=== PATIENT | male | born 1960 | race African-American/Black ===

== ENCOUNTER 2017-04-13 11:30 | Inpatient (IN) ==
[2017-04-20] MEDS ORDERED: SODIUM CHLORIDE 0.9% 100 ML IV ONE (05:57)
[2017-04-20] MEDS ORDERED: ALVIMOPAN 12 MG CAPSULE ONE (05:57)
[2017-04-20] MEDS ORDERED: SODIUM PHOSPHATE ENEMA 133 ML BOTTLE RECTAL ONE ×2 (05:57→06:30)
[2017-04-20] MEDS ORDERED: cefTRIAXone 1,000 MG VIAL ONE (05:57)
[2017-04-20] MEDS ORDERED: ALVIMOPAN 12 MG CAPSULE PO ONE (06:00)
[2017-04-20] MEDS ORDERED: cefTRIAXone 1,000 MG in SODIUM CHLORIDE 0.9% 100 ML IV ONE (06:00)
[2017-04-20] MEDS ORDERED: LACTATED RINGERS 1,000 ML IV SCH (07:00)
[2017-04-20] MEDS ORDERED: ROCURONIUM 100 MG/10 ML VIAL IV ONE (07:10)
[2017-04-20] MEDS ORDERED: LIDOCAINE 2% 5 ML VIAL ONE (07:10)
[2017-04-20] MEDS ORDERED: ONDANSETRON 4 MG/2 ML VIAL ONE ×2 (07:10→12:22)
[2017-04-20] MEDS ORDERED: PROPOFOL 200 MG/20 ML VIAL IV ONE (07:10)
[2017-04-20 08:49] LABS: Apearance,Urine CLEAR (Clear); Bilirubin,Urine Negative (Negative); Blood, Urine Negative (Negative); Glucose,Urine (UA) Negative (Negative); Ketones,Urine Negative (Negative); Mucus,Urine Occasional /LPF (Occasional); Nitrite,Urine Negative (Negative); Protein,Urine Negative; RBC,Urine <1 /HPF (0-4); Squamous Epithelial Cell,Urine Occasional /HPF (0-10); Urine Color Yellow (Yellow); Urine Specific Gravity 1.017 (1.001-1.035); Urine Urobilinogen < 2.0 EU/DL (0.2-1.0); WBC,Urine 6 /HPF (0-6)
--- NOTE | 2017-04-20 09:37 | Operative Note ---
Date of procedure: 04/20/17 Pre-op diagnosis: Veress needle malfunction Post-op diagnosis: same Procedure: Preoperative diagnosis Prostate cancer Postoperative diagnosis Same with Veress needle malfunction during trocar placement Procedures performed Diagnostic laparoscopy Findings I was called into the operating room by Dr. Kramer to evaluate an area of blood staining that occurred after laparoscopic trochars were placed. A Veress needle was used into the peritoneal cavity but the Veress needle malfunction in the protective inner cannula of the Veress needle did not deploy to cover the blade while it was going through the layers of the abdominal wall. After Dr. Kramer had exchanged for a robotic 8 mm trocar he noticed some blood in the abdomen and some air in the mesentery and asked me to evaluate this. After additional trochars were placed this area was thoroughly inspected. We could see a Veress needle injury site on the leaf of the mesentery but there is no evidence of entrance into the bowel and the bowel appeared fine. This area on the mesentery was in a location where he could have gone through the mesentery and into the sidewall the bowel but there was no succus and on compression of the bowel and interrogation there was no evidence of any problems there. There is no pneumatosis in the wall of the bowel and exploring this mesentery by the bowel would almost certainly result in too much risk to the patient to justify the benefit. I felt at this time that there was no significant risk of bowel injury and decided to leave this alone and will follow the patient postoperatively. Complications None apparent Specimen None Anesthesia GETA Indications Prostate cancer with Veress needle malfunction during trocar placement Description of procedure Patient was already asleep in the operating room at the time of my evaluation. There is some blood that had pooled around the mesentery in the mid abdomen. 3 trochars already been placed. I did a diagnostic laparoscopy with bowel clamps to remove the bowel around without injuring the bowel and there was no evidence of bowel injury in this area. There was some air in the mesentery on one side of the bowel and I saw what I thought was an entry site of the Veress needle. This was high enough on the mesentery that is certainly could have gone through the side of the intestine on the sidewall so we evaluated this area of the small bowel very carefully. There is no hematoma on the bowel at this location and there was no succus or pneumatosis or any evidence of injury to the bowel. This fat on the side of the bowel that was continuous with mesentery would have been nearly impossible to separate from the wall of the bowel without injuring the bowel and because everything else looks so normal I felt like the safest thing to do was to leave this alone and follow the patient postoperatively. There is no significant mesenteric hematoma. This concluded my portion of the case I left the operating room for Dr. Kramer to complete his prostatectomy. Postoperative plan Follow patient clinically Surgeon / Physician: Mateus Chávez Discharge Plan - Discharge Medications No Action raNITIdine HCl [Ranitidine HCl] 150 mg PO BID Cetirizine HCl [Cetirizine Tab] 10 mg PO DAILY Losartan/Hydrochlorothiazide [Losartan-Hctz 50-12.5 mg Tab] 1 each PO DAILY Metformin HCl 500 mg PO BID - Follow Up or Referral - Forms/Instructions
[2017-04-20] MEDS ORDERED: ONDANSETRON 4 MG/2 ML VIAL IV PRN ×2 (11:57→12:35)
[2017-04-20] MEDS ORDERED: diphenhydrAMINE 50 MG/1 ML VIAL IV PRN (11:57)
[2017-04-20] MEDS ORDERED: DEXTROSE 5% NACL 0.45% 1,000 ML IV SCH (12:00)
[2017-04-20] MEDS ORDERED: HYDROmorphone PCA 30 MG/30 ML SYRINGE IV SCH (12:00)
[2017-04-20] MEDS ORDERED: SEVOFLURANE 1 UNIT/15 MINUTE INH ONE (12:02)
[2017-04-20] MEDS ORDERED: ePHEDrine 50 MG/ML AMP ONE (12:03)
[2017-04-20] MEDS ORDERED: fentaNYL 100 MCG/2 ML VIAL ONE (12:03)
[2017-04-20] MEDS ORDERED: MIDAZOLAM 2 MG/2 ML VIAL ONE (12:03)
[2017-04-20] MEDS ORDERED: LACTATED RINGERS 2,000 ML IV ONE (12:03)
[2017-04-20] MEDS ORDERED: HYDROmorphone 2 MG/1 ML VIAL ONE ×2 (12:03→12:22)
--- NOTE | 2017-04-20 12:18 | Operative Note ---
Date of procedure: 04/20/17 Pre-op diagnosis: Carcinoma the prostate Post-op diagnosis: same Procedure: 56-year-old gentleman with carcinoma the prostate, intermediate risk. He is like to undergo prostatectomy. We have discussed a robotic assisted laparoscopic radical prostatectomy. Procedure was discussed at length and in detail. Risks, complications, outcomes, sequelae, prognosis and alternative therapy was discussed. Patient understood this and agreed to proceed. Patient is brought to the operative suite placed table in the supine position on the securing pad. He is then given a general endotracheal anesthetic placed in stirrups and then secured to the table in the usual manner for robotic prostatectomy. He is then prepared and draped in usual sterile manner. 22 Swedish Marquez was inserted in the bladder and the bladder was drained and the Marquez was clamped. Patient is then placed in Trendelenburg position. The legs are brought down. Formal timeout performed. A small incision created above the umbilicus. This is then bluntly dissected down the fascia he has a rather moderate panniculus in the subcutaneous tissues deep. Towel clips were used to pull up the abdominal wall using a Veress needle the Veress needle was used to joseph the fascia. But I did not hear the to click. I did have a saline drop test and with twisting of the needle I was able get insufflation. The insufflation was uniform throughout the abdominal cavity. The Veress needle was then removed and it is clear that the retracting mechanism pulled up into the nasal and did not deploy back out. The trocar was placed in a Cam was inserted. The intra- abdominal contents are noted. In the mesentery of the small bowel there is small amount of blood and one can see that there has been some insufflation here. Another port was placed in laterally to the camera port #1 and then between these up about 3 inches was the mini gel port. A consult to he came and scrubbed and looked at this. He did not see any injury of the bowel but he felt that dissecting the mesentery off the bowel would create too much risk for the patient he felt that at this point we did not have a bowel injury or vascular injury. Remaining trochars are placed #3 arm number form laterally on the right side. These were done under direct vision. I broke scrub and went to the console. [place] bipolar forceps and left and monopolar scissors in the right. Posterior dissection was begun. With elevation of the bladder in the cul-de-sac and anterior incision is created in the vas deferens and seminal vesicles are identified. Vas deferens were clipped and divided seminal vesicles dissected out. The seminal vesicles were surprisingly stuck and adherent with a lot of adhesions. A window in Denonvilliers's was created. Attention was then directed to creating the bladder flap. Incision is created in the anterior abdominal wall lateral to the median umbilical ligaments. Layne gets were then divided and cauterized and the bladder flap was dropped into the pelvis. Prevesical space was developed. Endopelvic fascia was divided on both sides there was a lot of vascularity to this case. A lot of small vessels feeding from the levators laterally and these had to be taken down. This was initially a nerve sparing so I did not want to take down all these vessels. The dorsal vein was identified in the superficial dorsal vein was then divided with the vessel sealer. Puboprostatics were divided and then a #1 Vicryl was used to ligate the dorsal venous complex. Attention was directed bladder neck. The junction was identified and divided with cautery. The bladder was entered with sharp dissection and bladder was then drained. Anterior pedicles were taken down intermittently and clipped and divided. Bladder neck was opened up posterior bladder neck was incised and the Marquez catheter was deflated and pulled back. Fourth arm was used to elevate the posterior prostate and remaining dissection was continued to the seminal vesicles and vas deferens which were pulled up. Posterior lateral pedicles were then taken down somewhat. Again there was a lot of adhesions. He has had a previous biopsy and I suspect it is related to multiple biopsies but could be cancer. I dissected the lateral prostatic fascia on the left side. But it was very close with biopsy having cancer at their office in a specimen for frozen section. This revealed prostate tissue but not cancer and so knowing this I elected not to spare this man's nerves. I just felt that we would have a positive margin if I did this. Remaining posterior lateral pedicles were isolated clipped and divided. The nerves were sacrificed on both sides. Plane between the rectum and the prostate was developed but had a lot of adhesions again I suspect that from previous biopsies. But this was done without any injury. Remaining pedicles were taken down and using cautery from the bipolar. Attention was directed to the apex. Dorsal venous complex was divided dissection was continued sharply down the urethra. In the anterior urethra was incised. Marquez catheter was pulled back the posterior urethra was then divided. Remainder attachments were divided. Specimen was placed in specimen bag which was pulled up in the left upper quadrant. No dissection was done on both sides. Adventitia the external iliac vein was entered the [place] tissue was swept in the obturator fossa. These were teased out using cautery. The obturator nerve was identified and not injured on both sides. These were sent as separate specimens. The anastomosis was then begun. A 2-0 Vicryl was used to approximate the posterior bladder neck to the posterior urethral plate and then using the convenient ema suture this was begun at 6 o'clock position outside in on both sides and running up from the 1:00 5:00 and 7:00 11:00 positions. A new 22 Swedish silicone Marquez was inserted prior to tying the suture. This was filled with 20 cc of saline and irrigated this was a watertight anastomosis. The anastomotic suture was then tied securely. The pneumoperitoneum was dropped to 0 there was no significant bleeding. The robot was then undocked. The patient was laying flat and the assistance port incision after pulling out the mini gel port was extended slightly and the specimen bag containing the prostate and seminal vesicles was removed. This wound was then closed with a running 0 Monocryl. All other wounds are irrigated and drained and hemostasis checked with cautery and all wounds were closed with skin clips on the skin. Sterile dressings were placed on the wounds and the catheter secured the upper thigh. Patient tolerated this procedure well was awakened anesthesia sent to the recovery room in stable condition. All sponge, needle and instrument counts correct 2. Implants: 22 Swedish all silicone Marquez Anesthesia: GETA Surgeon / Physician: Nicholas Kramer Estimated blood loss: other (250 cc) Specimens: other (Prostate with seminal vesicles, bilateral obturator nodes) Condition: stable Disposition: PACU Discharge Plan - Discharge Medications No Action raNITIdine HCl [Ranitidine HCl] 150 mg PO BID Cetirizine HCl [Cetirizine Tab] 10 mg PO DAILY Losartan/Hydrochlorothiazide [Losartan-Hctz 50-12.5 mg Tab] 1 each PO DAILY Metformin HCl 500 mg PO BID - Follow Up or Referral - Forms/Instructions
[2017-04-20] MEDS ORDERED: HYDROmorphone PCA 30 MG/30 ML SYRINGE IV ONE (12:22)
[2017-04-20] MEDS: HYDROmorphone 2 MG/1 ML VIAL IV PRN ×4 (12:22→12:37)
[2017-04-20] MEDS: SODIUM CHLORIDE 0.9% 1,000 ML IV SCH (14:12)
--- NOTE | 2017-04-20 14:36 | Anesthesia Post-Op ---
Anesthesia Post OP - Post Ansesthetic Evaluation Patient seen in post op: Yes Resp: within normal limits CV: within normal limits Mental: within normal limits Temp: within normal limits [id number]: within normal limits Nausea and Vomiting: within normal limits Pain: within normal limits
[2017-04-20] MEDS: SOLIFENACIN 5 MG TABLET PO SCH (14:39)
--- NOTE | 2017-04-20 17:13 | Urology Progress Note ---
Urology - PN: Subj Interval history: Postoperative check. Patient is awake and alert. Expected incisional tenderness. Urine is clearing. Vital signs are stable. Patient is stable. Exam - Constitutional Vitals: Period Temp Pulse Resp BP Sys/Morin Pulse Ox Last 24 Hr 97.5 F-98.4 F 65-89 16-20 117-141/69-94 2-100
[2017-04-20] MEDS: ALVIMOPAN 12 MG CAPSULE PO SCH (21:05)
[2017-04-20] MEDS: FAMOTIDINE 20 MG TABLET PO SCH (21:05)
[2017-04-20] MEDS: metFORMIN 500 MG TABLET PO SCH (21:05)
[2017-04-20] MEDS: LACTULOSE 20 GM/30 ML UDCUP PO SCH (21:05)
[2017-04-21] MEDS: SODIUM CHLORIDE 0.9% 1,000 ML IV SCH (00:14)
[2017-04-21 07:16] LABS: Basophils % 0.1 % (0.0-0.8); Hematocrit 31.6 VOL% (42.0-52.0); Hemoglobin 10.4 GM/DL (14.0-18.0); Immature Granulocytes % 0.3 %; Immature Granulocytes Absolute 0.02 #; Lymphocytes # 1.6 10*3/uL (1.4-4.0); Lymphocytes % 21.7 % (21.2-54.2); Mean Corpuscular HGB Conc 32.9 GM/DL (32-36); Mean Corpuscular Hemoglobin 29 PG (27-34); Mean Corpuscular Volume 88.5 FL (87-102); Mean Platelet Volume 11.7 FL (9.6-12.0); Monocytes # 0.7 10*3/uL (0.11-0.8); Monocytes % 9.3 % (1.7-12.7); Neutrophils # 5.1 10*3/uL (1.4-7.4); Neutrophils % 68.6 % (38.7-73.9); Platelet Count 185 T/CUMM (130-400); Red Blood Count 3.57 MC/CUMM (3.8-5.5); Red Cell Distribution Width 15.7 % (9.3-17.3); White Blood Count 7.4 T/CUMM (4-12)
[2017-04-21 07:40] LABS: Hypochromasia 1+
[2017-04-21 07:41] LABS: Microcytosis 1+; Platelet Estimate Adequate
[2017-04-21 07:59] LABS: Calcium 7.9 MG/DL (8.5-10.1); Osmolality,Calculated 281.3 MOS/KG (273-304); Potassium 3.6 MMOL/L (3.5-5.1)
[2017-04-21] MEDS: CETIRIZINE 10 MG TABLET PO SCH (08:38)
[2017-04-21] MEDS: LOSARTAN/HCTZ 50-12.5 MG TABLET PO SCH (08:38)
[2017-04-21] MEDS: FAMOTIDINE 20 MG TABLET PO SCH ×2 (08:38→20:28)
[2017-04-21] MEDS: SOLIFENACIN 5 MG TABLET PO SCH (08:38)
[2017-04-21] MEDS: ALVIMOPAN 12 MG CAPSULE PO SCH ×2 (08:38→20:28)
[2017-04-21] MEDS: metFORMIN 500 MG TABLET PO SCH ×2 (08:38→20:28)
[2017-04-21] MEDS: LACTULOSE 20 GM/30 ML UDCUP PO SCH ×2 (08:38→20:28)
[2017-04-21] MEDS ORDERED: MEPERIDINE 50 MG/1 ML VIAL IM PRN (08:56)
[2017-04-21] MEDS ORDERED: oxyCODONE/ACETAMINOPHEN 5-325 MG TABLET PO PRN (08:56)
--- NOTE | 2017-04-21 08:59 | Urology Progress Note ---
Urology - PN: Subj Interval history: Postop day 1. Urine is clear. Patient is tolerating his diet abdomen is soft with expected incisional tenderness. His blood work is fine. H&H is 10 and 31. Electrolytes are normal as well as his creatinine. Doing well. Plan progressive care. Exam - Constitutional Vitals: Period Temp Pulse Resp BP Sys/Morin Pulse Ox Last 24 Hr 97.4 F-98.4 F 65-98 16-20 100-139/59-94 2-100 Results - Labs CBC & BMP: 04/21/17 05:35 04/21/17 05:35
[2017-04-21] MEDS: oxyCODONE/ACETAMINOPHEN 5-325 MG TABLET PO PRN (16:46)
[2017-04-21] MEDS ORDERED: ALUMINUM/MAGNES/SIMETH MAX STR 30 ML UDCUP PO PRN (23:33)
[2017-04-22] MEDS: oxyCODONE/ACETAMINOPHEN 5-325 MG TABLET PO PRN (04:12)
[2017-04-22] MEDS: SOLIFENACIN 5 MG TABLET PO SCH (09:27)
[2017-04-22] MEDS: metFORMIN 500 MG TABLET PO SCH (09:27)
[2017-04-22] MEDS: LOSARTAN/HCTZ 50-12.5 MG TABLET PO SCH (09:27)
[2017-04-22] MEDS: FAMOTIDINE 20 MG TABLET PO SCH (09:27)
[2017-04-22] MEDS: CETIRIZINE 10 MG TABLET PO SCH (09:28)
[2017-04-22] MEDS: LACTULOSE 20 GM/30 ML UDCUP PO SCH (11:35)
[2017-04-22 11:46] VITALS: BP 124/70
--- NOTE | 2017-04-22 12:00 | Discharge Summary ---
Hospital Course - Hospital Course Hospital Course: 56-year-old gentleman who has intermediate risk carcinoma prostate underwent robotic prostatectomy. Postoperatively is done well. Blood work looks good postop his creatinine was normal. His urine is cleared up. He is tolerating regular diet. His wounds are healing well. We will discharge him to follow-up in the office in about 10 days to remove the catheter in about 2 weeks to see me. Activity and postoperative care has been discussed. We will write him a prescription for Percocet and some Ditropan XL for his bladder. Pathology report is pending. - Time spent with patient Time with patient DS: Greater than 30 minutes Diagnosis - Discharge Diagnosis (1) Prostate cancer Status: Acute Discharge Plan - Discharge Data Disposition: Disch To Home/Self Care Condition at Discharge: Stable Discharge Diet: regular diet Activity: no lifting, other (No driving, riding heavy lifting etc. Walking on flat ground is encouraged) Hygiene: no restrictions Weight Bearing at Discharge: full weight bearing Driving: not until seen by doctor Contact your physician if you experience:: fever over 101, Nausea/Vomiting, Bleeding, pain uncontrolled by pain medications - Discharge Medications No Action raNITIdine HCl [Ranitidine HCl] 150 mg PO BID Cetirizine HCl [Cetirizine Tab] 10 mg PO DAILY Losartan/Hydrochlorothiazide [Losartan-Hctz 50-12.5 mg Tab] 1 each PO DAILY Metformin HCl 500 mg PO BID - Follow Up or Referral - Forms/Instructions Exam - Constitutional Vitals: Period Temp Pulse Resp BP Sys/Morin Pulse Ox Last 24 Hr 97.4 F-98.6 F 72-109 18-20 104-140/59-73 92-99 Discharge Results Labs on day of discharge: Labs from last 24 hours 04/22/17 04/21/17 04/21/17 10:32 19:32 15:30 POC Glucose 169 H 209 H 141 H 04/21/17 11:07 POC Glucose 198 H DS: Provider Date of admission: 04/20/17 05:05 Primary care physician: . No PCP Attending physician on admission: Nicholas Kramer MD Discharging clinician: Nicholas Kramer MD
[2017-04-22] MEDS: ALVIMOPAN 12 MG CAPSULE PO SCH (12:53)
--- NOTE | 2017-04-22 19:19 | Pathology Report from [facility] ---
[facility] [place] ACCESSION # : [id number] PATIENT NAME : Chanda Contreras ORDERING DR : JOSE RAFAEL VEGA MD CLINICAL HX: Prostate cancer; PSA = 5.1. POST-OP DX: Same SPECIMEN INFO: #1 ? prostate tissue #2 Right obturator node #3 Left obturator node #4 Prostate GROSS DESCRIPTION: #1 CHANDA CONTRERAS received fresh is a 0.5 x 0.3 cm pink- sepulveda soft tissue fragments submitted in cassette #1 for frozen.#2 CHANDA CONTRERAS received fresh is 3 fragments of fatty tissue collectively 6.0 x 1.8 cm Submitted entirely in 2A& 2B.#3 CHANDA CONTRERAS received fresh ist a 2.7 x 1.8 x cm fragment of fatty tissue. Sectioned and submitted entirely in 3A & 3B.#4 CHANDA CONTRERAS received in formalin is a 4.2 x 4.5 x 3.2 cm, 66 gram prostate and attached seminal vesicles and vas deferens. The serosa is red-sepulveda and shaggy. The right side of the prostate is inked black, the left blue. Sections: 4A apical margin, 4B base margin, 4C seminal vesicles and vas deferens margins, 4D thru 4I right prostate apex to base, 4J thru 4N left prostate apex to base. DIAGNOSIS FOR CHANDA CONTRERAS: #1-#4 PROSTATE, RADICAL PROSTATECTOMY (4.5 x 4.2 x 3.2 cm, 66 gm): TYPE: Ductal adenocarcinoma. SITE: Both lobes. GRADE: Primary Pattern Grade 3; Secondary Pattern Grade 4; Total Iris Score = 7. IRIS GRADE GROUP: 2 (3 + 4 = 7). PERCENTAGE OF PATTERN 4 in IRIS SCORE ( 3 + 4 = 7) CANCER = 20%. TUMOR QUANTITATION: Percentage of prostate involved by tumor = 10%; Dominant nodule = 13 mm. MARGINS: Margins uninvolved by invasive carcinoma. EXTRAPROSTATIC EXTENSION: Not Identified. SEMINAL VESICLE INVASION: Not identified. URINARY BLADDER NECK INVASION: Not identified. LYMPH -VASCULAR INVASION: Not identified. PERINEURAL INVASION: Not identified. LYMPH NODES: Two obturator lymph nodes (#2 Rt & #3 Lt) negative for tumor (0/2) . AJCC PATHOLOGIC STAGE I ([id number]) COLLECTED DATE: 04/20/2017 [facility] REPORT DATE: 04/22/2017 ELECTRONICALLY SIGNED BY: Dionte Valenzuela M.D. 04/22/2017 - 13:42:46 MTDD
== END 2017-04-22 17:54 | disposition home or self-care (01) | DRG 707 ==
LOC: N.OR 04-20 05:05 → N.SDSINP 04-20 05:05 → EDSTATUS 04-20 07:30 → N.5E 04-20 11:12
PROVIDERS: ADMIT Urology; ATTEND Urology